=== PATIENT | female | born 1935 | race Caucasian/White ===

== ENCOUNTER 2020-03-03 10:27 | Emergency (ER) | payer OTHER ==
[~2020-03-03] VITALS: Ht 154.9 cm; Wt 71.2 kg
[2020-03-03] MEDS ORDERED: XOPENEX0.31 MG/3 INH (10:51)
[2020-03-03] MEDS ORDERED: SYMBICORT160 MCG/4. INH (10:51)
[2020-03-03] MEDS ORDERED: PROTONIX40 M2 PO (10:51)
[2020-03-03] MEDS ORDERED: MAGNESIUM250 M1 PO (10:51)
[2020-03-03] MEDS ORDERED: IRON325 M1 PO (10:51)
[2020-03-03 11:00] VITALS: BP 207/63
== END 2020-03-03 11:01 | disposition home or self-care (01) ==
LOC: M.ERS 10:27
DX: S60.221A Contusion of right hand, initial encounter (principal); Z79.899 Other long term (current) drug therapy; Z88.1 Allergy status to other antibiotic agents; Z88.2 Allergy status to sulfonamides; X58.XXXA Exposure to other specified factors, initial encounter; Y93.89 Activity, other specified; Y92.89 Other specified places as the place of occurrence of the external cause; Y99.8 Other external cause status